=== PATIENT | female | born 1955 | race Caucasian/White ===

== ENCOUNTER → 2021-07-17 11:34 | Outpatient (CLI) | payer OTHER, SELFPAY ==
--- NOTE | ~2021-07-17 | XR_ITS ---
EXAMINATION: XR knee LT min 4V, XR knee RT min 4V DATE: 07/17/2021 11:59 INDICATION: Bilateral knee pain TECHNIQUE: 1. Weight bearing anteroposterior and Fermin, sunrise, and flexed lateral views of the right knee were obtained. 2. Weight bearing anteroposterior and Fermin, sunrise, and flexed lateral views of the left knee w ere obtained. COMPARISON: None. FINDINGS: Alignment is normal at both knees. No fracture. Tricompartmental osteoarthritis at the bilateral kne es with severe joint space narrowing in the medial compartment of the right knee and moderate to mario re at the medial compartment of the left knee. Normal joint spaces but with small marginal osteophyte s at the lateral and patellofemoral compartment of both knees. No joint effusion/layering lipohemarth rosis. Soft tissues are unremarkable. IMPRESSION: 1. 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 Reviewed, dictated and finalized at location B. IMPRESSION: 1. 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
== END ==
PROVIDERS: PCP Physician Assistant; Visit Provider Physician Assistant
DX: M17.0 Bilateral primary osteoarthritis of knee (principal)
CPT/HCPCS: 73564

== ENCOUNTER 2022-02-10 07:51 | Emergency (ER) | payer OTHER, SELFPAY ==
[2022-02-10] VITALS (17 sets, daily range): BP systolic 91–147; BP diastolic 55–132; PULSE 65; RESP 20; TEMP 37; O2SAT 70–100
--- NOTE | ~2022-02-10 | XR_ITS ---
EXAMINATION: XR shoulder RT min 2V INDICATION: Right arm injury and deformity after fall, initial encounter TECHNIQUE: Three views of the right shoulder are submitted. COMPARISON: None FINDINGS: There is an acute, traumatic, closed, comminuted fracture involving the neck and head of th e proximal humerus. The fracture fragment containing the humeral shaft is mildly proximally migrated and medially displaced approximately 1.5 cm. There is mild osteoarthritis of the acromioclavicular roosevelt int. Soft tissues are unremarkable. IMPRESSION: 1. Displaced and overriding comminuted fracture involving the right humeral head and neck. Reviewed, dictated and finalized at location A. IFIED GENETIC COUNSELOR IMPRESSION: 1. Displaced and overriding comminuted fracture involving the right humeral hea d and neck.
--- NOTE | 2022-02-10 08:16 | ED.GENADULT ---
HPI - General Adult General Chief complaint: Fall Stated complaint: GLF c R shoulder deformity Time Seen by Provider: 02/10/22 07:51 History of Present Illness HPI narrative: 66-year-old female present to the emergency department for evaluation of right shoulder pain. Patient states that she had a mechanical fall after tripping over something in the dark. Patient did injure her right shoulder. Patient arrived to the emergency department with a shoulder splint in place. Patient complains pain at the proximal right shoulder. Patient denies any pain of the elbow or hand. Patient denies striking head denies loss of consciousness. Related Data Home Medications Medication Instructions Recorded Confirmed coenzyme Q10 10 mg capsule (Co 10 mg PO ONCE 07/20/21 Q-10) Allergies Allergy/AdvReac Type Severity Reaction Status Date / Time Contrast Media Allergy Unknown Swelling Uncoded 02/10/22 08:01 Review of Systems Review of Systems: CONSTITUTIONAL: Denies fever, chills, or sweats. EYES: Denies visual changes, redness, or discharge. ENT: Denies rhinorrhea, congestion, sore throat, or otalgia. CARDIOVASCULAR: Denies chest pain, palpitations, or edema. RESPIRATORY: Denies cough or dyspnea. GASTROINTESTINAL: Denies abdominal pain, nausea, vomiting, or diarrhea. GENITOURINARY: Denies dysuria or hematuria. SKIN: Denies rash or itching. MUSCULOSKELETAL: See HPI NEUROLOGIC: Denies headache, numbness, or weakness. [facility] Past Medical History Medical History (Updated 02/10/22 @ 09:06 by Brendan Gonzalez MD) Arthritis of knee HLD (hyperlipidemia) HTN (hypertension) Impacted cerumen of both ears Surgical History Surgical History History of cholecystectomy Family History Family History Father Hypertension Malignant neoplasm of prostate Mother Hypertension Sibling Family history of malignant neoplasm of urinary bladder Hypertension Social History Social History (Updated 07/20/21 @ 11:36 by Susy Lackey CMA) Smoking status: Never smoker Second hand tobacco smoke exposure: No Alcohol intake: current Drinks per week: 6 Substance use: never Substance use type: does not use Additional occupation/education comments: HM Gender identity (if verbalized by the patient): Female Sexual Orientation (if Verbalized by the Patient): Straight or Heterosexual Exam Narrative: APPEARANCE: Well appearing, no pain, no distress, well-nourished. HEAD: normocephalic, atraumatic. EYES: PERRLA/EOMI, conjunctivae clear. NOSE: Normal no drainage EARS:TMS clear with good light reflex. THROAT: Pharynx clear, no exudate. NECK: Supple. No adenopathy, no masses. RESPIRATORY: Airway patent, respirations nonlabored. Clear to auscultation bilaterally, no rales, rhonchi, wheezing. CARDIOVASCULAR: Regular rate and rhythm without murmurs rubs or gallops. ABDOMINAL: Soft, nontender, nondistended, normal bowel sounds MUSCULOSKELETAL: Moves all extremities. Pain in the right shoulder, limited range of motion. No significant deformity NEURO: Alert. Cranial nerves II through XII intact. Grossly intact SKIN: Warm, dry. Normal Color Course Course Emergency Course: Dr. Roa recommended that the patient be transferred to [facility]. Case was discussed and patient was accepted for transfer. Patient was placed in a shoulder immobilizer. Transfer services discussed the case with the orthopedic surgeon at [facility] and he recommended transfer, for services also spoke to the ED physician and patient was accepted for transfer. Patient and family were updated on the diagnosis and plan for transfer. All questions and concerns were addressed. Vital Signs Vital signs: Vital Signs Temperature 98.6 F 02/10/22 07:55 Pulse Rate 65 02/10/22 07:55 Respiratory Rate 20 02/10/22 07:55 Blood Pressure 134/95 H
[2022-02-10] MEDS: ONDANSETRON INJ 4 MG/2 ML VIAL IV PUSH (08:22)
[2022-02-10] MEDS: HYDROmorphone HCL INJ (*CRX) 1 MG/ML SYR IV PUSH ×3 (08:23→11:27)
[2022-02-10 08:51] LABS: Basophils Absolute Auto 0.1 K/mm3 (0.0-0.1); Basophils Percent Auto 1.1 % (0.2-1.2); Eosinophils Absolute Auto 0.2 K/mm3 (0-0.3); Eosinophils Percent Auto 3.5 % (0-4.4); Hematocrit 47.4 % (37.0-47.0); Hemoglobin 16.2 g/dL (12.0-15.0); Immature Granulocyte Absolute 0.01 K/mm3 (0.00-0.031); Immature Granulocyte Percent A 0.2 % (0-0.5); Lymphocytes Absolute Auto 2.23 K/mm3 (0.9-3.2); Lymphocytes Percent Auto 35.7 % (18.3-44.2); Mean Corpuscular HGB Conc 34.2 g/dl (32-36); Mean Corpuscular Hemoglobin 33.1 pg (26-34); Mean Corpuscular Volume 96.7 fl (80-100); Mean Platelet Volume 10.5 fl (7.4-10.4); Monocytes Absolute Auto 0.6 K/mm3 (0.1-0.6); Monocytes Percent Auto 9.6 % (2.6-8.5); Neutrophils Absolute Auto 3.1 K/mm3 (1.3-6.7); Neutrophils Percent Auto 49.9 % (45.5-73.1); Platelet Count Result 193 k/mm3 (150-375); White Blood Count 6.3 K/mm3 (4.5-10.0)
[2022-02-10 09:03] LABS: INR 1.1; Prothrombin Time 13.5 Seconds (11.1-14.7)
[2022-02-10 09:04] LABS: Partial Thromboplastin Time 23.7 SECONDS (22.3-36.8)
[2022-02-10 09:05] LABS: Anion Gap 9 mmol/L (8-16); Blood Urea Nitrogen 8 mg/dL (7-17); Calcium 8.9 mg/dL (8.4-10.2); Carbon Dioxide 25 mmol/L (22-30); Chloride 101 mmol/L (98-107); Estimated CRCL calculation 96 ml/min; Estimated Glomerular Filt Rate > 60; Glucose 111 mg/dL (65-110); Potassium 4.3 mmol/L (3.4-5.0); Sodium 135 mmol/L (137-145)
[2022-02-10] MEDS: HYDROmorphone HCL INJ (*CRX) 1 MG/ML SYR 0.5 MG IV PUSH (09:09)
[2022-02-10] MEDS: CYCLOBENZAPRINE HCL 10 MG TABLET PO (10:11)
[2022-02-10 10:48] LABS: Influenza A QL RT-PCR Negative (Negative); Influenza B QL RT-PCR Negative (Negative); SARS-CoV-2 RNA PCR Negative
== END 2022-02-10 11:32 | disposition short-term general hospital (02) ==
PROVIDERS: Emergency Provider Emergency Medicine; PCP Family Medicine
DX: S42.291A Other displaced fracture of upper end of right humerus, initial encounter for closed fracture (principal); E78.5 Hyperlipidemia, unspecified; I10 Essential (primary) hypertension; Z20.822 Contact with and (suspected) exposure to COVID-19; W01.0XXA Fall on same level from slipping, tripping and stumbling without subsequent striking against object, initial encounter
CPT/HCPCS: 36415; 73030; 80048; 85025; 85610; 85730; 87636; 96374; 96375; 96376; 99285; A9270; J1170; J2405

== ENCOUNTER 2024-05-08 16:19 | Emergency (ER) | payer OTHER, SELFPAY ==
[2024-05-08 16:31] VITALS: BP 177/81; PULSE 94; RESP 16; TEMP 37.9; O2SAT 98
--- NOTE | 2024-05-08 16:34 | ED_ITS ---
HPI - Abdominal Pain General Stated Complaint: left side pain, 102 temp Source: patient and RN notes reviewed Mode of arrival: ambulatory Limitations: no limitations History of Present Illness HPI narrative: 68 y/o female presented for c/o left lower abdominal pain, fever, and diarrhea. Onset morning. Pain worse with any movement especially bending over. Reports temp at home 100.2. Has had 3 diarrhea stools today. Reports normal appetite. Endorses hx diverticulitis and says this feels similar. Took ibuprofen. Denies nausea, vomiting, hematochezia, melena or lethargy. 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 Related Data Allergies Allergy/AdvReac Type Severity Reaction Status Date / Time Contrast Media Allergy Unknown Swelling Uncoded 11/13/23 11:47 Review of Systems Review of Systems: CONSTITUTIONAL: Denies body aches, reports fever ENT: Denies rhinorrhea, congestion CARDIOVASCULAR: Denies chest pain, palpitations, or edema. RESPIRATORY: Denies cough or dyspnea. GASTROINTESTINAL: Endorses abdominal pain, diarrhea. Denies nausea, vomiting, hematochezia, melena, hematemesis GENITOURINARY: Denies hematuria, or CVA tenderness. SKIN: Denies rash, itching, or wounds. MUSCULOSKELETAL: Denies back pain, joint pain, or myalgia. NEUROLOGIC: Denies headache, numbness, tingling, or weakness. All systems reviewed & are unremarkable except as noted in HPI and below PMFSH Past Medical History Medical History Arthritis of knee Fracture of head of right humerus HLD (hyperlipidemia) HTN (hypertension) Impacted cerumen of both ears Surgical History Surgical History History of cholecystectomy Family History Family History Father Hypertension Malignant neoplasm of prostate Mother Hypertension Sibling Family history of malignant neoplasm of urinary bladder Hypertension Social History Social History Smoking status: Never smoker Second hand tobacco smoke exposure: No Alcohol intake: current Drinks per week: 6 Substance use: never Substance use type: does not use Lack of Transportation: No Lack of Food: Never True Current Housing: I Have Housing Concerned About Future Housing: No Difficulty Paying Gas/Electric Bills: No Difficulty Paying for Meds: No Currently Unemployed: No Education: High School Diploma/GED Difficulty w/ Childcare or Family Care: No Living arrangements: with family Occupation/Education: other Additional occupation/education comments: HM Gender identity (if verbalized by the patient): Female Sexual Orientation (if Verbalized by the Patient): Straight or Heterosexual Comments At time of signature, I have reviewed and agree with nursing past medical, surgical, social and family history unless otherwise noted. Please see nursing chart for further information. There is no relevant family history pertinent to the presenting complaint Exam Narrative: GENERAL: appers in pain; in no acute distress. EYES: EOMI. Conjunctivae normal. ENT: Mucous membranes pink and moist. CHEST: No respiratory distress. Clear to auscultation. HEART: Regular rate and rhythm. No murmur appreciated. Normal peripheral pulses. ABDOMEN: abd soft, nondistended, normal active bowel sounds. Tender abdomen LLQ: guarding noted. No rebound tenderness, asymmetry or rigidity. SKIN: Warm, dry, no rash. Capillary refill normal. Normal skin turgor. NEURO: No focal deficits. Alert and oriented x3. Course Course Emergency Course: Patient is aware of diagnosis, understands and agrees to treatment plan. Anticipatory guidance given. Patient agrees to follow-up as directed and is aware of reasons to seek care at the emergency department. Portions of this record may have been created with voice recognition software Level of Care: Express Care Visit Vital Signs Vital signs: Vital Signs Temperature 100.2 F H 05/08/24 16:31 Pulse Rate 94 05/08/24 16:31 Respiratory Rate 16 05/08/24 16:31 Blood Pressure 177/81 H 05/08/24 16:31 Pulse Oximetry 98 05/08/24 16:31 Oxygen Delivery Room Air 05/08/24 16:31 Temperature 100.2 F H 05/08/24 16:31 Pulse Rate 94 05/08/24 16:31 Respiratory Rate 16 05/08/24 16:31 Blood Pressure 177/81 H 05/08/24 16:31 Pulse Oximetry 98 05/08/24 16:31 Oxygen Delivery Room Air 05/08/24 16:31 Transfer Transfered to: [place] Transportation: Other (Private vehicle) Transfer rationale: Pt is agreeable to transfer. [facility] transfer [facility] via private vehicle; declined ambulance. Risks of transportation reviewed with pt including injury, worsening of condition and . v/u. Has been will be driving pt; Report called to hospital, spoke with Lisa De Leon PA-C accepting physician. Pt is in stable condition at time of transfer. Advised to remain NPO and go directly to the hospital. MDM - Abdominal Pain MDM Narrative Medical decision making narrative: Patient with left lower abdominal pain, fever, and diarrhea. Advised ER transfer for further evaluation. Differential Diagnosis Differential diagnosis: Likely abdominal pain, acute appendicitis, calculus of kidney, constipation, diverticulitis, gastroenteritis, pancreatitis, small bowel obstruction and other Discharge Plan Discharge Clinical Impression: Abdominal pain, acute, left lower quadrant Patient Disposition: Acute Care Hospital Condition: Stable Patient Language: Urdu Prescriptions: No Action omeprazole 20 mg capsule,delayed release(DR/EC) 20 mg PO DAILY Qty: 90 2RF Rx Instructions: take 1 capsule by oral route every day 30 minutes to 1 hour before a meal atenolol 50 mg tablet See Rx Instructions .ROUTE .COMPLEX Qty: 90 1RF Dose Instruction: Take 1 tablet by mouth once daily Rx Instructions: Take 1 tablet by mouth once daily diltiazem HCl 360 mg capsule,extended release 24 hr 360 mg PO DAILY Qty: 90 3RF Rx Instructions: TAKE 1 CAPSULE BY MOUTH ONCE DAILY Follow-up/Referrals: Terese Palomares MD [Primary Care Provider] - Time of Disposition: 16:48
== END 2024-05-08 16:45 | disposition short-term general hospital (02) ==
PROVIDERS: Emergency Provider Nurse Practitioner Family; PCP Family Medicine
DX: R10.32 Left lower quadrant pain (principal); I10 Essential (primary) hypertension; E78.5 Hyperlipidemia, unspecified
CPT/HCPCS: 99212; G0463

== ENCOUNTER 2024-05-08 17:04 | Emergency (ER) | payer OTHER, SELFPAY ==
--- NOTE | ~2024-05-08 | CT_ITS ---
EXAMINATION: CT abdomen pelvis wo con DATE: 05/08/2024 20:44 INDICATION: LLQ pain, hx divericulitis TECHNIQUE: Computed tomography (CT) of the abdomen and pelvis was performed without intravenous contr ast. Automated exposure control and iterative reconstruction technique were employed. The dose-length product was 983.18 mGy-cm. COMPARISON: None. FINDINGS: Lower thorax: Coronary artery calcification. Small hiatal hernia. Liver: Nodular liver border. Biliary/Gallbladder: Gallbladder is absent. No bile duct dilation. Pancreas: Thin-walled mildly lobulated cystic density pancreatic head lesion, measuring 4.8 cm, with minimal wall calcification. The remainder the pancreas is normal. Spleen: Normal. Adrenals:No mass. Kidneys: No suspicious mass, obstructing stone, or hydronephrosis. GI tract: No small or large bowel dilation. Normal appendix. Moderate diverticulosis. Inflamed divert iculum in the left lower quadrant, in the proximal sigmoid, with surrounding inflammatory changes albertina t extend to the nearby left adnexal structures. Mesentery/Peritoneum: No ascites, mass, or free air. Retroperitoneum: No mass. Atherosclerotic calcifications of intra-abdominal arterial vessels. Pelvis: Normal urinary bladder and uterus. 3.1 cm left adnexal/ovarian cyst. Mild inflammatory change involving the right ovary and adnexal structures likely reactive to the adjacent diverticulitis. Nor mal right ovary. Soft Tissues: Soft tissues and body wall unremarkable. Bones: No acute osseous finding. IMPRESSION: Cirrhosis. Slight interval enlargement of the pancreatic head cyst now measuring 4.7 cm, with minimal change ove r nearly 6 years. Likely pseudocyst or benign epithelial cyst. Uncomplicated proximal sigmoid diverticulitis. 3.1 cm simple appearing left adnexal cyst, consider nonemergent outpatient pelvic ultrasound for furt her evaluation. Reviewed, dictated and finalized at location K. IMPRESSION: Cirrhosis. Slight interval enlargement of the pancreatic head cyst now measuring 4.7 cm, w ith minimal change coordinator nearly 6 years. Likely pseudocyst or benign epithelial cyst. Uncomplicated proximal sigmoid diverticulitis. 3.1 cm simple appearing left adnexal cyst, consider nonemergent outpatient pelv ic ultrasound for further evaluation.
--- OUTSIDE RECORDS SUMMARY | 2024-05-08 17:06 | XMS_ITS | Referral Summary ---
Author Organization [facility] Address [address] [place] [address] Care Team Providers Care Film Examiner Name Role Phone Unavailable Primary Care Provider Unavailabl e Source Comments [facility],non-owned Affiliates and Associated Physician Practices is amultiple site organization consisting of ambulatory clinics and hospital sitesin [place], [place], [place] and [place]. This disclosure is being madepursuant to the Care Everywhere program and may not contain all information available regarding this patient. Last updated 17.[facility] Allergies Active Allergy Reactions Criticality Noted Date Comments Contrast-Gadolinium Agents For Mri Anaphylaxis High 02/10/2022 Oxycodone-Acetaminophen Itching 02/19/2022 Medications * Be aware that medications may not be up to date on this document. Alwaysverify current medications with the patient. Medication Sig Dispensed Refills Start Date End Date Status atenolol (Tenormin) 50 MG tablet Take 1 (one) tablet by mouth once daily 01/22/2022 Active dilTIAZem ER (Tiazac) 360 MG capsule Take 1 (one) capsule by mouth once daily 01/22/2022 Active omeprazole (PriLOSEC) 20 MG capsule Take 1 (one) capsule by mouth daily before breakfast 01/14/2022 Active rosuvastatin (Crestor) 10 MG tablet Take 1 (one) tablet by mouth once daily 07/20/2021 Active cyclobenzaprine (Flexeril) 5 MG tablet Take 1 (one) tablet to 2 (two) tablets by mouth 3 times daily as needed (Muscle spasms) 45 tablet 02/19/2022 Active Additional Information Patient not taking.Reported on 04/02/2022 traMADol (Ultram) 50 MG tabletIndications:C losed fracture of proximal end of right humerus, unspecified fracture morphology, initial encounter Take 1 (one) tablet by mouth every 6 hours as needed for Pain FOR PAIN 50 tablet 02/22/2022 Active Additional Information Patient not taking.Reported on 04/02/2022 Active Problems Problem Noted Date Diagnosed Date 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 (FLUZONE HIGH-DOSE QUADRIVALENT; 65Y+), 0.7 ML (HD-IIV4) 01/24/2022 INFLUENZA VACCINE, QUADR. (F LUZONE; FLULAVAL; FLUARIX; AFLURIA QUADRIVALENT; 6MO+), 0.5 ML (IIV4) 12/30/2019,02/03/2019,12/18/2017 MODERNA SARS-COV-2 COVID-19 VACCINE 0.25ML 02/11 TD (ADULT), 5 LF TETANUS TOX OID, ADSORBED, PF 09/26/2008,02/24/1997 TDAP, HISTORIC VACCINE 11/29/2013,11/22/2013 Social History Tobacco Use Types Packs/Day Years Used Date Smoking Tobacco: Never Smokeless Tobacco: Never Tobacco Cessation:Counseling Given: Not Answered Alcohol Use Standard Drinks/Week Comments Yes 12 (1 standard drink = 0.6 oz pu re alcohol) AUDIT-C Answer Date Recorded Q1: How often do you have a drink containing alcohol? 4 or more times a week 02/10/2022 Q2: How many drinks containi ng alcohol do you have on a typical day when you are drinking? 10 or more Q3: How often do you have si x or more drinks on one occasion? Less than monthly 02/10/2022 Sex and Gender Information Value Date Recorded Sex Assigned at Not on file Gender Identity Not on file Sexual Orientation Not on file Last Filed Vital Signs Vital Sign Reading Time Taken Comments Blood Pressure 131/56 02/10/2022 7:30 PM INSIDE SALES ASSISTANT Pulse 63 02/10/2022 7:30 PM INSIDE SALES ASSISTANT Temperature 36.2 C (97.1 F) 02/10/2022 12:11 PM INSIDE SALES ASSISTANT Respiratory Rate 12 02/10/2022 7:30 PM INSIDE SALES ASSISTANT Oxygen Saturation 95% 02/10/2022 7:30 PM INSIDE SALES ASSISTANT Inhaled Oxygen Concentration - - Weight 99.8 kg (220 lb) 07/16/2022 11:20 AM CDT Height 167.6 cm (5' 6 ) 07/16/2022 11:20 AM CDT Body Mass Index 35.51 07/16/2022 11:20 AM CDT Plan of Treatment Not on file Procedures Procedure Name Priority Date/Time Associated Diagnosis Comments COMPREHENSIVE METABOLIC PANEL STAT 02/10/2022 1:33 PM INSIDE SALES ASSISTANT from Last 3 Months or Most Recently Relevant to Health Maintenance Results * (ABNORMAL) COMPREHENSIVE METABOLIC PANEL (02/10/2022 1:33 PM INSIDE SALES ASSISTANT) BUN 10 7 - 26 mg/dL 02/10/2022 2:08 PM [facility] Creatinine 0.85 0.56 - 0.96 mg/dL 02/10/2022 2:08 PM [facility] Sodium 138 136 - 145 mmol/L 02/10/2022 2:08 PM [facility] Potassium 4.9(H) 3.5 - 4.5 mmol/L 02/10/2022 2:08 PM [facility] Chloride 104 98 - 107 mmol/L 02/10/2022 2:08 PM [facility] CO2 25 22 - 29 mmol/L 02/10/2022 2:08 PM [facility] Glucose 122(H) 70 - 115 mg/dL 02/10/2022 2:08 PM [facility] Calcium 8.8 8.4 - 10.2 mg/dL 02/10/2022 2:08 PM [facility] Protein Total 7.5 6.0 - 8.3 g/dL 02/10/2022 2:08 PM [facility] Albumin 3.7 3.4 - 5.0 g/dL 02/10/2022 2:08 PM [facility] Bilirubin Total 1.7(H) 0.2 - 1.2 mg/dL 02/10/2022 2:08 PM [facility] Alkaline Phosphatase 79 40 - 150 U/L 02/10/2022 2:08 PM [facility] ALT 72(H) 5 - 55 U/L 02/10/2022 2:08 PM [facility] AST 125(H) 5 - 34 U/L 02/10/2022 2:08 PM [facility] Anion Gap 14 8 - 18 02/10/2022 2:08 PM [facility] BUN/Creatinine Ratio 12 7 - 23 02/10/2022 2:08 PM [facility] Osmolality Calculated 286 270 - 300 mOsm/kg 02/10/2022 2:08 PM [facility] Albumin/Globulin Ratio 1.0(L) 1.1 - 2.3 02/10/2022 2:08 PM [facility] eGFR by CKD-EPI 76(L) >=90 mL/min/1.7 3 m2 02/10/2022 2:08 PM [facility] Blood BLOOD SPECIMEN / Unknown Venipuncture / Unknown 02/10/2022 1:33 PM INSIDE SALES ASSISTANT 02/10/2022 1:39 PM INSIDE SALES ASSISTANT Thad Tejeda DO LAB - CHEMISTRY OR DERABLES [facility] [address] [place] [address], [facility] [phone] from Last 3 Months or Most Recently Relevant to Health Maintenance
--- OUTSIDE RECORDS SUMMARY | 2024-05-08 17:06 | XMS_ITS | Patient Health Summary ---
Author Organization [facility] Address [address] [place] [address] Care Team Providers Care Manager Laboratory Name Role Phone Unavailable Primary Care Provider Unavailabl e Note from [facility],non-owned Affiliates and Associated Physician Practices is amultiple site organization consisting of ambulatory clinics and hospital sitesin [place], [place], [place] and [place]. This disclosure is being madepursuant to the Care Everywhere program and may not contain all information available regarding this patient. Last updated 17.[facility] Allergies * Contrast-Gadolinium Agents For Mri(Anaphylaxis) -High Criticality * Oxycodone-Acetaminophen(Itching) Medications * Be aware that medications may not be up to date on this document. Alwaysverify current medications with the patient. * atenolol (Tenormin) 50 MG tablet(Started 01/22/2022) Take 1 (one) tablet by mouth once daily * dilTIAZem ER (Tiazac) 360 MG capsule(Started 01/22/2022) Take 1 (one) capsule by mouth once daily * omeprazole (PriLOSEC) 20 MG capsule(Started 01/14/2022) Take 1 (one) capsule by mouth daily before breakfast * rosuvastatin (Crestor) 10 MG tablet(Started 07/20/2021) Take 1 (one) tablet by mouth once daily * cyclobenzaprine (Flexeril) 5 MG tablet(Started 02/19/2022) Take 1 (one) tablet to 2 (two) tablets by mouth 3 times daily as needed (Muscle spasms) * traMADol (Ultram) 50 MG tablet(Started 02/22/2022) Take 1 (one) tablet by mouth every 6 hours as needed for Pain FOR PAIN Active Problems Problem Noted Date Diagnosed Date 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 (FLUZONE HIGH-DOSE QUADRIVALENT; 65Y+), 0.7 ML (HD-IIV4)(Given 01/24/2022) * INFLUENZA VACCINE, QUADR. (FLUZONE; FLULAVAL; FLUARIX; AFLURIA QUADRIVALENT; 6MO+), 0.5 ML (IIV4)(Given 12/30/2019, 02/03/2019, 12/18/2017) * MODERNA SARS-COV-2 COVID-19 VACCINE 0.25ML(Given 02/11/2021) * TD (ADULT), 5 LF TETANUS TOXOID, ADSORBED, PF(Given 09/26/2008, 02/24/1997) * TDAP, HISTORIC VACCINE(Given 11/29/2013, 11/22/2013) Social History Tobacco Use Types Packs/Day Years [...] Comments Blood Pressure 131/56 02/10/2022 7:30 PM [facility] Pulse 63 02/10/2022 7:30 PM [facility] Temperature 36.2 C (97.1 F) 02/10/2022 12:11 PM [facility] Respiratory Rate 12 02/10/2022 7:30 PM [facility] Oxygen Saturation 95% 02/10/2022 7:30 PM [facility] Inhaled Oxygen Concentration - - Weight 99.8 kg (220 lb) 07/16/2022 11:20 AM CDT Height 167.6 cm (5' 6 ) 07/16/2022 11:20 AM CDT Body Mass Index 35.51 07/16/2022 11:20 AM CDT Procedures * XR SHOULDER RIGHT 2VW OR MORE(Performed 08/28/2022) Performed for Closed fracture of proximal end of right humerus with routine healing, unspecified fracture morphology, subsequent encounter * XR SHOULDER RIGHT 2VW OR MORE(Performed 07/16/2022) Performed for Closed fracture of proximal end of right humerus with routine healing, unspecified fracture morphology, subsequent encounter * XR SHOULDER RIGHT 2VW OR MORE(Performed 05/14/2022) Performed for Acute pain of right shoulder * XR SHOULDER RIGHT 2VW OR MORE(Performed 04/02/2022) Performed for Acute pain of right shoulder * XR SHOULDER RIGHT 2VW OR MORE(Performed 03/05/2022) Performed for Closed fracture of proximal end of right humerus, unspecified fracture morphology, initial encounter * XR SHOULDER RIGHT 2VW OR MORE(Performed 02/19/2022) Performed for Closed fracture of proximal end of right humerus, unspecified fracture morphology, initial encounter * CT SHOULDER RIGHT WO CONTRAST(Performed 02/10/2022) Performed for Other closed displaced fracture of proximal end of right humerus, initial encounter * XR SHOULDER RIGHT 2VW OR MORE(Performed 02/10/2022) Performed for Other closed displaced fracture of proximal end of right humerus, initial encounter * COMPREHENSIVE METABOLIC PANEL(Performed 02/10/2022) * CBC W AUTO DIFFERENTIAL(Performed 02/10/2022) * XR ELBOW RIGHT 3VW OR MORE(Performed 02/10/2022) Performed for Other closed displaced fracture of proximal end of right humerus, initial encounter * XR SHOULDER RIGHT 2VW OR MORE(Performed 02/10/2022) Performed for Other closed displaced fracture of proximal end of right humerus, initial encounter * XR HUMERUS RIGHT 2VW OR MORE(Performed 02/10/2022) Performed for Other closed displaced fracture of proximal end of right humerus, initial encounter Results * XR SHOULDER RIGHT 2VW OR MORE (08/28/2022 9:54 AM CDT) Only the most recent of8 resultswithin the time period is included. Anatomical Region Laterality Modality Upper Extremity Radiographic Michelle ging 08/28/2022 9:59 AM CDT Impressions 08/28/2022 10:00 AM CDT IMPRESSION: Healing humeral neck fracture, unchanged in alignment. > Interpreting Provider: Ken Anderson MD on 08/28/2022 10:00 AM Narrative 08/28/2022 10:00 AM CDT PROCEDURE: XR SHOULDER RIGHT 2VW OR MORE DATE/TIME OF EXAM: 08/28/2022 9:54 AM CLINICAL INFORMATION: None relevant/not provided if blank. Indication: S42.201D: Closed fracture of proximal end of right humerus with routine healing, unspecified fracture morphology, subsequent encounter Additional History: COMPARISON: 07/16/2022. FINDINGS: There is a mildly to moderately displaced and impacted humeral neck fracture which is unchanged in alignment and healing. There is mild degenerative change at the acromioclavicular joint. Procedure Note Ken Anderson MD - 08/28/2022 PROCEDURE: XR SHOULDER RIGHT 2VW OR MORE DATE/TIME OF EXAM: 08/28/2022 9:54 AM CLINICAL INFORMATION: None relevant/not provided if blank. Indication: S42.201D: Closed fracture of proximal end of right humeruswith routine healing, unspecified fracture morphology, subsequent encounter Additional History: COMPARISON: 07/16/2022. FINDINGS: There is a mildly to moderately displaced and impacted humeral neck fracture which is unchanged in alignment and healing. There is mild degenerative change at the acromioclavicular joint. IMPRESSION: Healing humeral neck fracture, unchanged in alignment. > Interpreting Provider: Ken Anderson MD on 08/28/2022 10:00 AM Francisco Mishra MD DIAGNOSTIC IMAGING O RDERABLES * CT SHOULDER RIGHT WO CONTRAST (02/10/2022 6:39 PM [facility]) Anatomical Region Laterality Modality Upper Extremity Computed Tomogra phy 02/11/2022 11:1 4 AM [facility] Impressions 02/11/2022 11:33 AM [facility] IMPRESSION: 1.Comminuted moderately displaced fracture of the humeral head and neck. > Dictated by Yosi Vilchis DO (Unit Secy) Ken Mora MD have personally reviewed and interpreted this examination/study. > Interpreting Provider: Ken Anderson MD on 02/11/2022 11:33 AM Narrative 02/11/2022 11:33 AM [facility] PROCEDURE: CT SHOULDER RIGHT WO CONTRAST, DATE/TIME OF EXAM: 02/10/2022 6:39 PM, LOCATION [facility] INDICATION: S42.291A: Other closed displaced fracture of proximal end of right humerus, initial encounter ADDITIONAL CLINICAL INFORMATION: Ordering Provider Reason For Exam: eval for dislocation and eval proximal humeral fracture COMPARISON: Right shoulder radiograph dated 02/10/2022. TECHNIQUE: CT of the right shoulder was performed utilizing standard protocol. CT dose reduction technique was used, including Automated Exposure Control. FINDINGS: Bones: There is a comminuted moderately displaced fracture of the humeral head and neck. The fracture involves the greater tuberosity. There is no dislocation. There is no significant arthritis at the acromioclavicular or glenohumeral joints. Soft tissues: There is soft tissue edema around the humeral fracture site. Procedure Note Ken Anderson MD - 02/11/2022 PROCEDURE: CT SHOULDER RIGHT WO CONTRAST, DATE/TIME OF EXAM:02/10/2022 6:39 PM, LOCATION [facility] INDICATION: S42.291A: Other closed displaced fracture of proximal end of righthumerus, initial encounter ADDITIONAL CLINICAL INFORMATION: Ordering Provider Reason For Exam: eval for dislocation and evalproximal humeral fracture COMPARISON: Right shoulder radiograph dated 02/10/2022. TECHNIQUE: CT of the right shoulder was performed utilizing standard protocol. CT dose reduction technique was used, including Automated ExposureControl. FINDINGS: Bones: There is a comminuted moderately displaced fracture of thehumeral head and neck. The fracture involves the greater tuberosity. There is no dislocation. There is no significant arthritis at the acromioclavicularor glenohumeral joints. Soft tissues: There is soft tissue edema around the humeral fracture site. IMPRESSION: 1.Comminuted moderately displaced fracture of the humeral head and neck. > Dictated by Yosi Vilchis DO (Unit Sec[employer]) Ken Mora MD have personally reviewed and interpreted this examination/study. > Interpreting Provider: Ken Anderson MD on 02/11/2022 11:33 AM Thad Tejeda DO CT ORDERABLES * (ABNORMAL) CBC W AUTO DIFFERENTIAL (02/10/2022 1:33 PM [facility]) WBC 8.0 3.5 - 10.5 10 3/uL 02/10/2022 1:43 PM [facility] RBC 4.29 3.80 - 5.20 10 6/uL 02/10/2022 1:43 PM [facility] Hemoglobin 13.9 12.0 - 15.6 g/dL 02/10/2022 1:43 PM [facility] Hematocrit 40.9 35.0 - 45.0 % 02/10/2022 1:43 PM [facility] MCV 95.3 80.7 - 98.3 fL 02/10/2022 1:43 PM [facility] MCH 32.4 26.7 - 34.0 pg 02/10/2022 1:43 PM [facility] MCHC 34.0 30.8 - 35.9 g/dL 02/10/2022 1:43 PM [facility] RDW-SD 45.9 36.0 - 50.0 fL 02/10/2022 1:43 PM [facility] RDW-CV 13.1 11.2 - 14.8 % 02/10/2022 1:43 PM [facility] Platelet Count 165 150 - 400 10 3/uL 02/10/2022 1:43 PM [facility] MPV 10.3 9.4 - 12.9 fL 02/10/2022 1:43 PM [facility] nRBC Absolute 0.00 0 10 3/uL 02/10/2022 1:43 PM [facility] nRBC Auto 0.0 0 /100 WBC 02/10/2022 1:43 PM [facility] Neutrophils % 80.1(H) 35.0 - 70.0 % 02/10/2022 1:43 PM [facility] Lymphocytes % 11.2(L) 20.0 - 43.0 % 02/10/2022 1:43 PM [facility] Monocytes % 7.8 5.0 - 13.0 % 02/10/2022 1:43 PM [facility] Eosinophils % 0.1 0.0 - 6.0 % 02/10/2022 1:43 PM [facility] Basophil % 0.4 0.0 - 2.0 % 02/10/2022 1:43 PM [facility] Neutrophils Absolute 6.38 1.60 - 7.00 10 3/uL 02/10/2022 1:43 PM [facility] Lymphocyte Absolute 0.89(L) 1.10 - 3.90 10 3/uL 02/10/2022 1:43 PM [facility] Monocytes Absolute 0.62 0.26 - 1.07 10 3/uL 02/10/2022 1:43 PM [facility] Eosinophils Absolute 0.01 0.00 - 0.47 10 3/uL 02/10/2022 1:43 PM [facility] Basophils Absolute 0.03 0.00 - 0.08 10 3/uL 02/10/2022 1:43 PM [facility] Immature Granulocytes % 0.4 0.0 - 1.0 % 02/10/2022 1:43 PM [facility] Immature Granulocytes Absolute 0.03 02/10/2022 1:43 PM [facility] Blood BLOOD SPECIMEN / Unknown Venipuncture / Unknown 02/10/2022 1:33 PM [facility] 02/10/2022 1:39 PM [facility] Thad Tejeda DO LAB - HEMATOLOGY O RDERABLES [facility] [address] [place] [address], [facility] [phone] * (ABNORMAL) COMPREHENSIVE METABOLIC PANEL (02/10/2022 1:33 PM [facility]) BUN 10 7 - 26 mg/dL 02/10/2022 2:08 PM [facility] Creatinine 0.85 0.56 - 0.96 mg/dL 02/10/2022 2:08 PM [facility] Sodium 138 136 - 145 mmol/L 02/10/2022 2:08 PM [facility] Potassium 4.9(H) 3.5 - 4.5 mmol/L 02/10/2022 2:08 PM [facility] Chloride 104 98 - 107 mmol/L 02/10/2022 2:08 PM [facility] CO2 25 22 - 29 mmol/L 02/10/2022 2:08 PM [facility] Glucose 122(H) 70 - 115 mg/dL 02/10/2022 2:08 PM [facility] Calcium 8.8 8.4 - 10.2 mg/dL 02/10/2022 2:08 PM [facility] Protein Total 7.5 6.0 - 8.3 g/dL 02/10/2022 2:08 PM [facility] Albumin 3.7 3.4 - 5.0 g/dL 02/10/2022 2:08 PM [facility] Bilirubin Total 1.7(H) 0.2 - 1.2 mg/dL 02/10/2022 2:08 PM [facility] Alkaline Phosphatase 79 40 - 150 U/L 02/10/2022 2:08 PM [facility] ALT 72(H) 5 - 55 U/L 02/10/2022 2:08 PM [facility] AST 125(H) 5 - 34 U/L 02/10/2022 2:08 PM [facility] Anion Gap 14 8 - 18 02/10/2022 2:08 PM [facility] BUN/Creatinine Ratio 12 7 - 23 02/10/2022 2:08 PM [facility] Osmolality Calculated 286 270 - 300 mOsm/kg 02/10/2022 2:08 PM [facility] Albumin/Globulin Ratio 1.0(L) 1.1 - 2.3 02/10/2022 2:08 PM [facility] eGFR by CKD-EPI 76(L) >=90 mL/min/1.7 3 m2 02/10/2022 2:08 PM [facility] Blood BLOOD SPECIMEN / Unknown Venipuncture / Unknown 02/10/2022 1:33 PM [facility] 02/10/2022 1:39 PM [facility] Thad Tejeda DO LAB - CHEMISTRY OR DERABLES [facility] [address] [place] [address], [facility] [phone] * XR ELBOW RIGHT 3VW OR MORE (02/10/2022 1:14 PM [facility]) Anatomical Region Laterality Modality Upper Extremity Radiographic Michelle ging 02/10/2022 1:14 PM [facility] Impressions 02/10/2022 1:56 PM [facility] IMPRESSION: 1.Acute, oblique fracture through the surgical neck of the proximal humerus with medial displacement of the distal humeral fragment. 2.The distal humerus and elbow are intact without substantial soft tissue edema or effusion. Report dictated by Shan Saldana MD (financial institution president). IANGELICA MD have personally reviewed and interpreted this examination/study. > Interpreting Provider: ANGELICA DICKSON MD on 02/10/2022 1:56 PM Narrative 02/10/2022 1:56 PM [facility] PROCEDURE: XR SHOULDER RIGHT 2VW OR MORE, XR ELBOW RIGHT 3VW OR MORE, XR HUMERUS RIGHT 2VW OR MORE, DATE/TIME OF EXAM: 02/10/2022 1:14 PM, LOCATION [facility] INDICATION: S42.291A: Other closed displaced fracture of proximal end of right humerus, initial encounter ADDITIONAL CLINICAL INFORMATION: Ordering Provider Reason For Exam: Fracture. (accession [id number]), Fracture (accession [id number]), Fracture (accession [id number]) Technologist Note: Additional: COMPARISON: None. FINDINGS: Right shoulder: There is an acute, oblique fracture through the surgical neck of the proximal humerus with medial displacement of the distal humeral fragment. The acromioclavicular joint is in anatomic alignment.. Bone density and texture are normal. Right humerus: Mildly displaced proximal humeral fracture, better characterized on dedicated shoulder radiographs. The mid and distal humerus appear intact without evidence of acute fracture or dislocation. No elbow joint effusion is noted. Right elbow: The osseous structures are intact and well aligned without acute fracture or dislocation. The joint spaces are preserved. No joint effusion is seen. Bone density and texture are normal. No soft tissue swelling is present. Procedure Note Angelica Dickson MD - 02/10/2022 PROCEDURE: XR SHOULDER RIGHT 2VW OR MORE, XR ELBOW RIGHT 3VW OR MORE,XR HUMERUS RIGHT 2VW OR MORE, DATE/TIME OF EXAM: 02/10/2022 1:14 PM,LOCATION [facility] INDICATION: S42.291A: Other closed displaced fracture of proximal end of righthumerus, initial encounter ADDITIONAL CLINICAL INFORMATION: Ordering Provider Reason For Exam: Fracture. (accession [id number]), Fracture (accession [id number]), Fracture (accession [id number]) Technologist Note: Additional: COMPARISON: None. FINDINGS: Right shoulder: There is an acute, oblique fracture through the surgical neck of the proximal humerus with medial displacement of the distal humeralfragment. The acromioclavicular joint is in anatomic alignment.. Bone density and texture are normal. Right humerus: Mildly displaced proximal humeral fracture, better characterized on dedicated shoulder radiographs. The mid and distal humerus appear intact without evidence of acute fracture or dislocation. No elbow jointeffusion is noted. Right elbow: The osseous structures are intact and well aligned without acutefracture or dislocation. The joint spaces are preserved. No joint effusion isseen. Bone density and texture are normal. No soft tissue swelling is present. IMPRESSION: 1.Acute, oblique fracture through the surgical neck of the proximalhumerus with medial displacement of the distal humeral fragment. 2.The distal humerus and elbow are intact without substantial softtissue edema or effusion. Report dictated by Shan Saldana MD (financial institution president). I, ANGELICA DICKSON MD have personally reviewed and interpreted this examination/study. > Interpreting Provider: ANGELICA DICKSON MD on 02/10/2022 1:56 PM Thad Tejeda DO DIAGNOSTIC IMAGING ORDERABLES * XR HUMERUS RIGHT 2VW OR MORE (02/10/2022 1:13 PM [facility]) Anatomical Region Laterality Modality Upper Extremity Radiographic Michelle ging 02/10/2022 1:14 PM [facility] Impressions 02/10/2022 1:56 PM [facility] IMPRESSION: 1.Acute, oblique fracture through the surgical neck of the proximal humerus with medial displacement of the distal humeral fragment. 2.The distal humerus and elbow are intact without substantial soft tissue edema or effusion. Report dictated by Shan Saldana MD (financial institution president). I, ANGELICA DICKSON MD have personally reviewed and interpreted this examination/study. > Interpreting Provider: ANGELICA DICKSON MD on 02/10/2022 1:56 PM Narrative 02/10/2022 1:56 PM [facility] PROCEDURE: XR SHOULDER RIGHT 2VW OR MORE, XR ELBOW RIGHT 3VW OR MORE, XR HUMERUS RIGHT 2VW OR MORE, DATE/TIME OF EXAM: 02/10/2022 1:14 PM, LOCATION [facility] INDICATION: S42.291A: Other closed displaced fracture of proximal end of right humerus, initial encounter ADDITIONAL CLINICAL INFORMATION: Ordering Provider Reason For Exam: Fracture. (accession [id number]), Fracture (accession [id number]), Fracture (accession [id number]) Technologist Note: Additional: COMPARISON: None. FINDINGS: Right shoulder: There is an acute, oblique fracture through the surgical neck of the proximal humerus with medial displacement of the distal humeral fragment. The acromioclavicular joint is in anatomic alignment.. Bone density and texture are normal. Right humerus: Mildly displaced proximal humeral fracture, better characterized on dedicated shoulder radiographs. The mid and distal humerus appear intact without evidence of acute fracture or dislocation. No elbow joint effusion is noted. Right elbow: The osseous structures are intact and well aligned without acute fracture or dislocation. The joint spaces are preserved. No joint effusion is seen. Bone density and texture are normal. No soft tissue swelling is present. Procedure Note Angelica Dickson MD - 02/10/2022 PROCEDURE: XR SHOULDER RIGHT 2VW OR MORE, XR ELBOW RIGHT 3VW OR MORE,XR HUMERUS RIGHT 2VW OR MORE, DATE/TIME OF EXAM: 02/10/2022 1:14 PM,LOCATION [facility] INDICATION: S42.291A: Other closed displaced fracture of proximal end of righthumerus, initial encounter ADDITIONAL CLINICAL INFORMATION: Ordering Provider Reason For Exam: Fracture. (accession [id number]), Fracture (accession [id number]), Fracture (accession [id number]) Technologist Note: Additional: COMPARISON: None. FINDINGS: Right shoulder: There is an acute, oblique fracture through the surgical neck of the proximal humerus with medial displacement of the distal humeralfragment. The acromioclavicular joint is in anatomic alignment.. Bone density and texture are normal. Right humerus: Mildly displaced proximal humeral fracture, better characterized on dedicated shoulder radiographs. The mid and distal humerus appear intact without evidence of acute fracture or dislocation. No elbow jointeffusion is noted. Right elbow: The osseous structures are intact and well aligned without acutefracture or dislocation. The joint spaces are preserved. No joint effusion isseen. Bone density and texture are normal. No soft tissue swelling is present.
--- OUTSIDE RECORDS SUMMARY | 2024-05-08 17:06 | XMS_ITS | Clinical Summary ---
Author Organization [facility] [employer] Address [address] [place] [address] Care Team Providers Care Livestock Dealer Name Role Phone Unavailable Primary Care Provider Unavailabl e Source Comments [facility] [employer],non-owned Affiliates and Associated Physician Practices is amultiple site organization consisting of ambulatory clinics and hospital sitesin [place], [place], [place] and [place]. This disclosure is being madepursuant to the Care Everywhere program and may not contain all information available regarding this patient. Last updated 17.[facility] [employer] Allergies Active Allergy Reactions Criticality Noted Date [...] Comments Blood Pressure 131/56 02/10/2022 7:30 PM QUALITY REVIEWER Pulse 63 02/10/2022 7:30 PM QUALITY REVIEWER Temperature 36.2 C (97.1 F) 02/10/2022 12:11 PM QUALITY REVIEWER Respiratory Rate 12 02/10/2022 7:30 PM QUALITY REVIEWER Oxygen Saturation 95% 02/10/2022 7:30 PM QUALITY REVIEWER Inhaled Oxygen Concentration - - Weight 99.8 kg (220 lb) 07/16/2022 11:20 AM CDT Height 167.6 cm (5' 6 ) 07/16/2022 11:20 AM CDT Body Mass Index 35.51 07/16/2022 11:20 AM CDT Plan of Treatment Health Maintenance Due Date Last Done Comments BONE DENSITY TESTING 1955 COLOGUARD (AGES 45-75) - COLON CA SCREENING 1956 COLON MONITORING 1956 COLONOSCOPY - COLON CA SCREENING 1956 CT COLONOGRAPHY - COLON CA SCREENING 1956 Colorectal Cancer Screening 1956 FIT - COLON CA SCREENING 1956 FLEX SIG - COLON CA SCREENING 1956 MAMMOGRAM 1956 HEPATITIS C SCREENING 08/29/1974 PNEUMOCOCCAL VACCINE 50+ (1 of 1 - PCV) 2006 ZOSTER VACCINE (1 of 2) 2006 COVID-19 VACCINE (4 - season) 2023 02/11/2021, 06/20/2020, 05/23/2020 INFLUENZA VACCINE (#1) 2023 , 12/30/2019, 02/03/2019, Additional history exists DTAP/TDAP/TD VACCINES (5 - Td or Tdap) 11/30/2023 11/29/2013, 11/22/2013, 09/26/2008, Additional history exists DEPRESSION SCREENING 02/25/2024 SCREENING FOR DIABETES 02/10/2025 02/10/2022 Respiratory Syncytial Virus (RSV) Vaccine Pt: or over 60 yrs (1 - 1-dose 75+ series) 09/03/2031 HEPATITIS B VACCINE Completed 12/23/2003, 07/15/2003, 06/10/2003 HIB VACCINE Aged Out No longer eligi ble based on patient's age to complete this topic HPV VACCINE Aged Out No longer eligi ble based on patient's age to complete this topic MENINGOCOCCAL (Group B) VACCINE SHARED DECISION-MAKING Aged Out No longer eligible based on patient's age to complete this topic MENINGOCOCCAL GROUPS A/C/Y/W VACCINE Aged Out No longer eligible based on patient's age to complete this topic Procedures Procedure Name Priority Date/Time Associated Diagnosis Comments COMPREHENSIVE METABOLIC PANEL STAT 02/10/2022 1:33 PM QUALITY REVIEWER from Last 3 Months or Most Recently Relevant to Health Maintenance Results * (ABNORMAL) COMPREHENSIVE METABOLIC PANEL (02/10/2022 1:33 PM QUALITY REVIEWER) BUN 10 7 - 26 mg/dL 02/10/2022 2:08 PM [facility] Creatinine 0.85 0.56 - 0.96 mg/dL 02/10/2022 2:08 PM [facility] Sodium 138 136 - 145 mmol/L 02/10/2022 2:08 PM [facility] Potassium 4.9(H) 3.5 - 4.5 mmol/L 02/10/2022 2:08 PM [facility] Chloride 104 98 - 107 mmol/L 02/10/2022 2:08 PM [facility] CO2 25 22 - 29 mmol/L 02/10/2022 2:08 PM [facility] Glucose 122(H) 70 - 115 mg/dL 02/10/2022 2:08 PM [facility] Calcium 8.8 8.4 - 10.2 mg/dL 02/10/2022 2:08 PM [facility] Protein Total 7.5 6.0 - 8.3 g/dL 02/10/2022 2:08 PM [facility] Albumin 3.7 3.4 - 5.0 g/dL 02/10/2022 2:08 PM [facility] Bilirubin Total 1.7(H) 0.2 - 1.2 mg/dL 02/10/2022 2:08 PM [facility] Alkaline Phosphatase 79 40 - 150 U/L 02/10/2022 2:08 PM [facility] ALT 72(H) 5 - 55 U/L 02/10/2022 2:08 PM [facility] AST 125(H) 5 - 34 U/L 02/10/2022 2:08 PM [facility] Anion Gap 14 8 - 18 02/10/2022 2:08 PM [facility] BUN/Creatinine Ratio 12 7 - 23 02/10/2022 2:08 PM [facility] Osmolality Calculated 286 270 - 300 mOsm/kg 02/10/2022 2:08 PM [facility] Albumin/Globulin Ratio 1.0(L) 1.1 - 2.3 02/10/2022 2:08 PM [facility] eGFR by CKD-EPI 76(L) >=90 mL/min/1.7 3 m2 02/10/2022 2:08 PM [facility] Blood BLOOD SPECIMEN / Unknown Venipuncture / Unknown 02/10/2022 1:33 PM QUALITY REVIEWER 02/10/2022 1:39 PM QUALITY REVIEWER Thad Tejeda DO LAB - CHEMISTRY OR DERABLES [facility] [address] [place] [address], [facility] [phone] from Last 3 Months or Most Recently Relevant to Health Maintenance
[2024-05-08 17:08] VITALS: BP 185/84; PULSE 81; RESP 19; TEMP 37.2; O2SAT 96
--- OUTSIDE RECORDS SUMMARY | 2024-05-08 18:58 | XMS_ITS | Clinical Summary ---
Author Organization [facility] [employer] Address [address] [place] [address] Care Team Providers Care Spanish Interpreter/Translator Name Role Phone Unavailable Primary Care Provider Unavailabl e Source Comments [facility] [employer],non-owned Affiliates and Associated Physician Practices is amultiple site organization consisting of ambulatory clinics and hospital sitesin [place] and [place]. This disclosure is being madepursuant to the Care Everywhere program and may not contain all information available regarding this patient. Last updated 17.[facility] [employer] Allergies Active Allergy Reactions Criticality Noted Date [...] Comments Blood Pressure 131/56 02/10/2022 7:30 PM WAFER FAB OPERATOR Pulse 63 02/10/2022 7:30 PM WAFER FAB OPERATOR Temperature 36.2 C (97.1 F) 02/10/2022 12:11 PM WAFER FAB OPERATOR Respiratory Rate 12 02/10/2022 7:30 PM WAFER FAB OPERATOR Oxygen Saturation 95% 02/10/2022 7:30 PM WAFER FAB OPERATOR Inhaled Oxygen Concentration - - Weight 99.8 [...] COMPREHENSIVE METABOLIC PANEL STAT 02/10/2022 1:33 PM WAFER FAB OPERATOR from Last 3 Months or Most Recently Relevant to Health Maintenance Results * (ABNORMAL) COMPREHENSIVE METABOLIC PANEL (02/10/2022 1:33 PM WAFER FAB OPERATOR) BUN 10 7 - 26 mg/dL 02/10/2022 2:08 PM [facility] Creatinine 0.85 0.56 - 0.96 mg/dL 02/10/2022 2:08 PM [facility] Sodium 138 136 - 145 mmol/L 02/10/2022 2:08 PM [facility] Potassium 4.9(H) 3.5 - 4.5 mmol/L 02/10/2022 2:08 PM [facility] Chloride 104 98 - 107 mmol/L 02/10/2022 2:08 PM [facility] CO2 25 22 - 29 mmol/L 02/10/2022 2:08 PM [facility] Glucose 122(H) 70 - 115 mg/dL 02/10/2022 2:08 PM [facility] Calcium 8.8 8.4 - 10.2 mg/dL 02/10/2022 2:08 PM [facility] Protein Total 7.5 6.0 - 8.3 g/dL 02/10/2022 2:08 PM [facility] Albumin 3.7 3.4 - 5.0 g/dL 02/10/2022 2:08 PM [facility] Bilirubin Total 1.7(H) 0.2 - 1.2 mg/dL 02/10/2022 2:08 PM [facility] Alkaline Phosphatase 79 40 - 150 U/L 02/10/2022 2:08 PM [facility] ALT 72(H) 5 - 55 U/L 02/10/2022 2:08 PM [facility] AST 125(H) 5 - 34 U/L 02/10/2022 2:08 PM [facility] Anion Gap 14 8 - 18 02/10/2022 2:08 PM [facility] BUN/Creatinine Ratio 12 7 - 23 02/10/2022 2:08 PM [facility] Osmolality Calculated 286 270 - 300 mOsm/kg 02/10/2022 2:08 PM [facility] Albumin/Globulin Ratio 1.0(L) 1.1 - 2.3 02/10/2022 2:08 PM [facility] eGFR by CKD-EPI 76(L) >=90 mL/min/1.7 3 m2 02/10/2022 2:08 PM [facility] Blood BLOOD SPECIMEN / Unknown Venipuncture / Unknown 02/10/2022 1:33 PM WAFER FAB OPERATOR 02/10/2022 1:39 PM WAFER FAB OPERATOR Thad Tejeda DO LAB - CHEMISTRY OR DERABLES [facility] [address] [place] [address], [facility] [phone] from Last 3 Months or Most Recently Relevant to Health Maintenance
--- OUTSIDE RECORDS SUMMARY | 2024-05-08 18:58 | XMS_ITS | Patient Health Summary ---
Author Organization [facility] Address [address] [place] [address] Care Team Providers Care Middle School History Teacher Name Role Phone Unavailable Primary Care Provider Unavailabl e Note from [facility],non-owned Affiliates and Associated Physician Practices is amultiple site organization consisting of ambulatory clinics and hospital sitesin [place], [place], [place] and [place]. This disclosure is being madepursuant to the Care Everywhere program and may not contain all information available regarding this patient. Last updated 17.[facility] Allergies * Contrast-Gadolinium Agents For Mri(Anaphylaxis) -High [...] Comments Blood Pressure 131/56 02/10/2022 7:[address] SQL DEVELOPER Pulse 63 02/10/2022 7:[address] SQL DEVELOPER Temperature 36.2 C (97.1 F) 02/10/2022 12:[address] SQL DEVELOPER Respiratory Rate 12 02/10/2022 7:[address] SQL DEVELOPER Oxygen Saturation 95% 02/10/2022 7:[address] SQL DEVELOPER Inhaled Oxygen Concentration - - Weight 99.8 [...] SHOULDER RIGHT WO CONTRAST (02/10/2022 6:[address] SQL DEVELOPER) Anatomical Region Laterality Modality Upper Extremity Computed Tomogra phy 02/11/2022 11:[address] SQL DEVELOPER Impressions 02/11/2022 11:[address] SQL DEVELOPER IMPRESSION: 1.Comminuted moderately displaced fracture of the humeral head and neck. > Dictated by Yosi Vilchis DO (Education Program Associate) Ken Mora MD have personally reviewed and interpreted this examination/study. > Interpreting Provider: Ken Anderson MD on 02/11/2022 11:33 AM Narrative 02/11/2022 11:[address] SQL DEVELOPER PROCEDURE: CT SHOULDER RIGHT WO CONTRAST, DATE/TIME OF EXAM: 02/10/2022 6:39 PM, LOCATION [facility] INDICATION: S42.291A: Other closed displaced fracture of [...] CONTRAST, DATE/TIME OF EXAM:02/10/2022 6:39 PM, LOCATION [facility] INDICATION: S42.291A: Other closed displaced fracture of [...] neck. > Dictated by Yosi Vilchis DO (Education Program Associate) Ken Mora MD have personally reviewed and interpreted this examination/study. > Interpreting Provider: Ken Anderson MD on 02/11/2022 11:33 AM Thad Tejeda DO CT ORDERABLES * (ABNORMAL) CBC W AUTO DIFFERENTIAL (02/10/2022 1:33 PM [facility]) WBC 8.0 3.5 - 10.5 10 3/uL 02/10/2022 1:43 PM [facility] RBC 4.29 3.80 - 5.20 10 6/uL 02/10/2022 1:43 PM [facility] Hemoglobin 13.9 12.0 - 15.6 g/dL 02/10/2022 1:43 PM [facility] Hematocrit 40.9 35.0 - 45.0 % 02/10/2022 1:43 PM [facility] MCV 95.3 80.7 - 98.3 fL 02/10/2022 1:43 PM [facility] MCH 32.4 26.7 - 34.0 pg 02/10/2022 1:43 PM [facility] MCHC 34.0 30.8 - 35.9 g/dL 02/10/2022 1:43 PM [facility] RDW-SD 45.9 36.0 - 50.0 fL 02/10/2022 1:43 PM [facility] RDW-CV 13.1 11.2 - 14.8 % 02/10/2022 1:43 PM [facility] Platelet Count 165 150 - 400 10 3/uL 02/10/2022 1:43 PM [facility] MPV 10.3 9.4 - 12.9 fL 02/10/2022 1:43 PM [facility] nRBC Absolute 0.00 0 10 3/uL 02/10/2022 1:43 PM [facility] nRBC Auto 0.0 0 /100 WBC 02/10/2022 1:43 PM [facility] Neutrophils % 80.1(H) 35.0 - 70.0 % 02/10/2022 1:43 PM [facility] Lymphocytes % 11.2(L) 20.0 - 43.0 % 02/10/2022 1:43 PM [facility] Monocytes % 7.8 5.0 - 13.0 % 02/10/2022 1:43 PM [facility] Eosinophils % 0.1 0.0 - 6.0 % 02/10/2022 1:43 PM [facility] Basophil % 0.4 0.0 - 2.0 % 02/10/2022 1:43 PM [facility] Neutrophils Absolute 6.38 1.60 - 7.00 10 3/uL 02/10/2022 1:43 PM [facility] Lymphocyte Absolute 0.89(L) 1.10 - 3.90 10 3/uL 02/10/2022 1:43 PM [facility] Monocytes Absolute 0.62 0.26 - 1.07 10 3/uL 02/10/2022 1:43 PM [facility] Eosinophils Absolute 0.01 0.00 - 0.47 10 3/uL 02/10/2022 1:43 PM [facility] Basophils Absolute 0.03 0.00 - 0.08 10 3/uL 02/10/2022 1:43 PM [facility] Immature Granulocytes % 0.4 0.0 - 1.0 % 02/10/2022 1:43 PM [facility] Immature Granulocytes Absolute 0.03 02/10/2022 1:43 PM [facility] Blood BLOOD SPECIMEN / Unknown Venipuncture / Unknown 02/10/2022 1:[address] SQL DEVELOPER 02/10/2022 1:39 PM [facility] Thad Tejeda DO LAB - HEMATOLOGY O RDERABLES [facility] [address] [place] [address], [facility] [phone] * (ABNORMAL) COMPREHENSIVE METABOLIC PANEL (02/10/2022 1:[address] SQL DEVELOPER) BUN 10 7 - 26 mg/dL 02/10/2022 2:08 PM [facility] Creatinine 0.85 0.56 - 0.96 mg/dL 02/10/2022 2:08 PM [facility] Sodium 138 136 - 145 mmol/L 02/10/2022 2:08 PM [facility] Potassium 4.9(H) 3.5 - 4.5 mmol/L 02/10/2022 2:08 PM [facility] Chloride 104 98 - 107 mmol/L 02/10/2022 2:08 PM [facility] CO2 25 22 - 29 mmol/L 02/10/2022 2:08 PM [facility] Glucose 122(H) 70 - 115 mg/dL 02/10/2022 2:08 PM [facility] Calcium 8.8 8.4 - 10.2 mg/dL 02/10/2022 2:08 PM [facility] Protein Total 7.5 6.0 - 8.3 g/dL 02/10/2022 2:08 PM [facility] Albumin 3.7 3.4 - 5.0 g/dL 02/10/2022 2:08 PM [facility] Bilirubin Total 1.7(H) 0.2 - 1.2 mg/dL 02/10/2022 2:08 PM [facility] Alkaline Phosphatase 79 40 - 150 U/L 02/10/2022 2:08 PM [facility] ALT 72(H) 5 - 55 U/L 02/10/2022 2:08 PM [facility] AST 125(H) 5 - 34 U/L 02/10/2022 2:08 PM [facility] Anion Gap 14 8 - 18 02/10/2022 2:08 PM [facility] BUN/Creatinine Ratio 12 7 - 23 02/10/2022 2:08 PM [facility] Osmolality Calculated 286 270 - 300 mOsm/kg 02/10/2022 2:08 PM [facility] Albumin/Globulin Ratio 1.0(L) 1.1 - 2.3 02/10/2022 2:08 PM [facility] eGFR by CKD-EPI 76(L) >=90 mL/min/1.7 3 m2 02/10/2022 2:08 PM [facility] Blood BLOOD SPECIMEN / Unknown Venipuncture / Unknown 02/10/2022 1:[address] SQL DEVELOPER 02/10/2022 1:39 PM [facility] Thad Tejeda DO LAB - CHEMISTRY OR DERABLES [facility] [address] [place] [address], [facility] [phone] * XR ELBOW RIGHT 3VW OR MORE (02/10/2022 1:[address] SQL DEVELOPER) Anatomical Region Laterality Modality Upper Extremity Radiographic Michelle ging 02/10/2022 1:[address] SQL DEVELOPER Impressions 02/10/2022 1:[address] SQL DEVELOPER IMPRESSION: 1.Acute, oblique fracture through the surgical neck of the proximal humerus with medial displacement of the distal humeral fragment. 2.The distal humerus and elbow are intact without substantial soft tissue edema or effusion. Report dictated by Shan Saldana MD (residential appraiser). IANGELICA MD have personally reviewed and interpreted this examination/study. > Interpreting Provider: ANGELICA DICKSON MD on 02/10/2022 1:56 PM Narrative 02/10/2022 1:[address] SQL DEVELOPER PROCEDURE: XR SHOULDER RIGHT 2VW OR MORE, XR ELBOW RIGHT 3VW OR MORE, XR HUMERUS RIGHT 2VW OR MORE, DATE/TIME OF EXAM: 02/10/2022 1:14 PM, LOCATION [facility] INDICATION: S42.291A: Other closed displaced fracture of proximal end of right humerus, initial encounter ADDITIONAL CLINICAL INFORMATION: Ordering Provider Reason For Exam: Fracture. (accession [id number]), Fracture (accession [id number]), Fracture (accession [id number]) Technologist Note: Additional: COMPARISON: None. FINDINGS: Right [...] MORE, DATE/TIME OF EXAM: 02/10/2022 1:14 PM,LOCATION [facility] INDICATION: S42.291A: Other closed displaced fracture of proximal end of righthumerus, initial encounter ADDITIONAL CLINICAL INFORMATION: Ordering Provider Reason For Exam: Fracture. (accession [id number]), Fracture (accession [id number]), Fracture (accession [id number]) Technologist Note: Additional: COMPARISON: None. FINDINGS: Right [...] effusion. Report dictated by Shan Saldana MD (residential appraiser). I, ANGELICA DICKSON MD have personally reviewed and interpreted this examination/study. > Interpreting Provider: ANGELICA DICKSON MD on 02/10/2022 1:56 PM Thad Tejeda DO DIAGNOSTIC IMAGING ORDERABLES * XR HUMERUS RIGHT 2VW OR MORE (02/10/2022 1:[address] SQL DEVELOPER) Anatomical Region Laterality Modality Upper Extremity Radiographic Michelle ging 02/10/2022 1:[address] SQL DEVELOPER Impressions 02/10/2022 1:[address] SQL DEVELOPER IMPRESSION: 1.Acute, oblique fracture through the surgical neck of the proximal humerus with medial displacement of the distal humeral fragment. 2.The distal humerus and elbow are intact without substantial soft tissue edema or effusion. Report dictated by Shan Saldana MD (residential appraiser). I, ANGELICA DICKSON MD have personally reviewed and interpreted this examination/study. > Interpreting Provider: ANGELICA DICKSON MD on 02/10/2022 1:56 PM Narrative 02/10/2022 1:[address] SQL DEVELOPER PROCEDURE: XR SHOULDER RIGHT 2VW OR MORE, XR ELBOW RIGHT 3VW OR MORE, XR HUMERUS RIGHT 2VW OR MORE, DATE/TIME OF EXAM: 02/10/2022 1:14 PM, LOCATION [facility] INDICATION: S42.291A: Other closed displaced fracture of proximal end of right humerus, initial encounter ADDITIONAL CLINICAL INFORMATION: Ordering Provider Reason For Exam: Fracture. (accession [id number]), Fracture (accession [id number]), Fracture (accession [id number]) Technologist Note: Additional: COMPARISON: None. FINDINGS: Right [...] MORE, DATE/TIME OF EXAM: 02/10/2022 1:14 PM,LOCATION [facility] INDICATION: S42.291A: Other closed displaced fracture of proximal end of righthumerus, initial encounter ADDITIONAL CLINICAL INFORMATION: Ordering Provider Reason For Exam: Fracture. (accession [id number]), Fracture (accession [id number]), Fracture (accession [id number]) Technologist Note: Additional: COMPARISON: None. FINDINGS: Right [...]
--- OUTSIDE RECORDS SUMMARY | 2024-05-08 18:58 | XMS_ITS | Referral Summary ---
Author Organization [facility] [employer] Address [address] [place] [address] Care Team Providers Care Metal Miner Blasting Name Role Phone Unavailable Primary Care Provider Unavailabl e Source Comments [facility] [employer] [facility] [facility],non-owned Affiliates and Associated Physician Practices is amultiple site organization consisting of ambulatory clinics and hospital sitesin [place], [place], [place] and [place]. This disclosure is being madepursuant to the Care Everywhere program and may not contain all information available regarding this patient. Last updated 17.[facility] [facility] Allergies Active Allergy Reactions Criticality Noted Date [...] Comments Blood Pressure 131/56 02/10/2022 7:30 PM CRISIS CLINICIAN Pulse 63 02/10/2022 7:30 PM CRISIS CLINICIAN Temperature 36.2 C (97.1 F) 02/10/2022 12:11 PM CRISIS CLINICIAN Respiratory Rate 12 02/10/2022 7:30 PM CRISIS CLINICIAN Oxygen Saturation 95% 02/10/2022 7:30 PM CRISIS CLINICIAN Inhaled Oxygen Concentration - - Weight 99.8 kg (220 lb) 07/16/2022 11:20 AM CDT Height 167.6 cm (5' 6 ) 07/16/2022 11:20 AM CDT Body Mass Index 35.51 07/16/2022 11:20 AM CDT Plan of Treatment Not on file Procedures Procedure Name Priority Date/Time Associated Diagnosis Comments COMPREHENSIVE METABOLIC PANEL STAT 02/10/2022 1:33 PM CRISIS CLINICIAN from Last 3 Months or Most Recently Relevant to Health Maintenance Results * (ABNORMAL) COMPREHENSIVE METABOLIC PANEL (02/10/2022 1:33 PM CRISIS CLINICIAN) BUN 10 7 - 26 mg/dL 02/10/2022 2:08 PM [facility] Creatinine 0.85 0.56 - 0.96 mg/dL 02/10/2022 2:08 PM [facility] Sodium 138 136 - 145 mmol/L 02/10/2022 2:08 PM [facility] Potassium 4.9(H) 3.5 - 4.5 mmol/L 02/10/2022 2:08 PM [facility] Chloride 104 98 - 107 mmol/L 02/10/2022 2:08 PM [facility] CO2 25 22 - 29 mmol/L 02/10/2022 2:08 PM [facility] Glucose 122(H) 70 - 115 mg/dL 02/10/2022 2:08 PM [facility] Calcium 8.8 8.4 - 10.2 mg/dL 02/10/2022 2:08 PM [facility] Protein Total 7.5 6.0 - 8.3 g/dL 02/10/2022 2:08 PM [facility] Albumin 3.7 3.4 - 5.0 g/dL 02/10/2022 2:08 PM [facility] Bilirubin Total 1.7(H) 0.2 - 1.2 mg/dL 02/10/2022 2:08 PM [facility] Alkaline Phosphatase 79 40 - 150 U/L 02/10/2022 2:08 PM [facility] ALT 72(H) 5 - 55 U/L 02/10/2022 2:08 PM [facility] AST 125(H) 5 - 34 U/L 02/10/2022 2:08 PM [facility] Anion Gap 14 8 - 18 02/10/2022 2:08 PM [facility] BUN/Creatinine Ratio 12 7 - 23 02/10/2022 2:08 PM [facility] Osmolality Calculated 286 270 - 300 mOsm/kg 02/10/2022 2:08 PM [facility] Albumin/Globulin Ratio 1.0(L) 1.1 - 2.3 02/10/2022 2:08 PM [facility] eGFR by CKD-EPI 76(L) >=90 mL/min/1.7 3 m2 02/10/2022 2:08 PM [facility] Blood BLOOD SPECIMEN / Unknown Venipuncture / Unknown 02/10/2022 1:33 PM CRISIS CLINICIAN 02/10/2022 1:39 PM CRISIS CLINICIAN Thad Tejeda DO LAB - CHEMISTRY OR DERABLES [facility] [address] [place] [address], [facility] [phone] from Last 3 Months or Most Recently Relevant to Health Maintenance
--- NOTE | 2024-05-08 19:43 | ED.ABDPAIN ---
HPI - Abdominal Pain General Chief Complaint: Abdominal Pain Stated Complaint: LEFT LOWER ABD PAIN, FEVER Time Seen by Provider: 05/08/24 18:23 Source: patient Mode of arrival: ambulatory Limitations: no limitations History of Present Illness HPI narrative: This is a 68-year-old female that presents to the emergency department for left lower quadrant abdominal pain. Ongoing since this morning. Reports associated diarrhea. Reports history of diverticulitis. Also reports fevers. Related Data Allergies Allergy/AdvReac Type Severity Reaction Status Date / Time Contrast Media Allergy Unknown Swelling Uncoded 05/08/24 19:57 Review of Systems Review of Systems: CONSTITUTIONAL: Denies fever GASTROINTESTINAL: Reports abdominal pain, and diarrhea. All systems reviewed & are unremarkable except as noted in HPI and below PMFSH Past Medical History Medical History Arthritis of knee Fracture of head of right humerus HLD (hyperlipidemia) HTN (hypertension) Impacted cerumen of both ears Surgical History Surgical History History of cholecystectomy Family History Family History Father Hypertension Malignant neoplasm of prostate Mother Hypertension Sibling Family history of malignant neoplasm of urinary bladder Hypertension Social History Social History Smoking status: Never smoker Second hand tobacco smoke exposure: No Alcohol intake: current Drinks per week: 6 Substance use: never Substance use type: does not use Lack of Transportation: No Lack of Food: Never True Current Housing: I Have Housing Concerned About Future Housing: No Difficulty Paying Gas/Electric Bills: No Difficulty Paying for Meds: No Currently Unemployed: No Education: High School Diploma/GED Difficulty w/ Childcare or Family Care: No Living arrangements: with family Occupation/Education: other Additional occupation/education comments: HM Gender identity (if verbalized by the patient): Female Sexual Orientation (if Verbalized by the Patient): Straight or Heterosexual Exam Narrative: GENERAL: Well-appearing, well-nourished, and in no acute distress. HEAD: Normocephalic, atraumatic. EYES: EOMI. CHEST: Clear to auscultation. No respiratory distress. No wheezes rales or rhonchi HEART: Regular rate and rhythm. No murmur heard. Normal peripheral pulses. ABDOMEN: Soft, nondistended, normal active bowel sounds. Mild tenderness to palpation in left lower abdomen, without guarding EXTREMITIES: Normal range of motion. No edema. SKIN: Warm, dry, no rash. NEURO: No focal deficits. Alert and oriented x3. PSYCH: Normal mood and affect Course Course Emergency Course: Patient updated on her workup and agrees with plan of care Vital Signs Vital signs: Vital Signs Temperature 98.9 F 05/08/24 17:08 Pulse Rate 81 05/08/24 17:08 Respiratory Rate 19 05/08/24 17:08 Blood Pressure 185/84 H 05/08/24 17:08 Pulse Oximetry 96 05/08/24 17:08 Oxygen Delivery Room Air 05/08/24 17:08 Temperature 98.9 F 05/08/24 17:08 Pulse Rate 81 05/08/24 17:08 Respiratory Rate 19 05/08/24 17:08 Blood Pressure 185/84 H 05/08/24 17:08 Pulse Oximetry 96 05/08/24 17:08 Oxygen Delivery Room Air 05/08/24 17:08 MDM - Abdominal Pain MDM Narrative Medical decision making narrative: Patient presents emergency department for left lower quadrant abdominal pain. History of diverticulitis. Patient is afebrile and nontoxic appearing. CBC with mild leukocytosis to 11.6. Metabolic panel without concerning findings. CT abdomen and pelvis shows uncomplicated proximal sigmoid diverticulitis. 3.1 cm simple left ovarian cyst. Patient updated on her workup and agrees with plan of care. She is to follow up with primary provider. She was given warnings to return to the ER Differential Diagnosis Differential diagnosis: Likely calculus of kidney and diverticulitis Lab Data Attestation: I reviewed the patient's lab results. 05/08/24 19:56 05/08/24 19:56 Labs: Lab Results 05/08/24 Range/Units 19:56 WBC 11.6 H (4.5-10.0) K/mm3 RBC 4.92 (4.2-5.4) M/mm3 Hgb 15.9 H (12.0-15.0) g/dL Hct 45.9 (37.0-47.0) % MCV 93.3 (80-100) fl MCH 32.3 (26-34) pg MCHC 34.6 (32-36) g/dl RDW 12.9 (11.5-14.5) % Plt Count 201 (150-375) k/mm3 MPV 9.7 (7.4-10.4) fl Immature Gran % (Auto) 0.3 (0-0.5) % Neut % (Auto) 77.7 H (45.5-73.1) % Lymph % (Auto) 12.7 L (18.3-44.2) % Buchanan % (Auto) 8.6 H (2.6-8.5) % Eos % (Auto) 0.3 (0-4.4) % Baso % (Auto) 0.4 (0.2-1.2) % Lymph # (Auto) 1.47 (0.9-3.2) K/mm3 Buchanan # (Auto) 1.0 H (0.1-0.6) K/mm3 Eos # (Auto) 0.0 (0-0.3) K/mm3 Baso # (Auto) 0.1 (0.0-0.1) K/mm3 Abs Immat Gran (auto) 0.04 H (0.00-0.031) K/mm3 Absolute Neuts (auto) 9.0 H (1.3-6.7) K/mm3 Absolute Nucleated RBC 0.000 (0.0-0.012) K/mm3 Nucleated RBC % 0.0 (0.0-0.2) % Sodium 135 L (137-145) mmol/L Potassium 4.4 (3.4-5.0) mmol/L Chloride 101 (98-107) mmol/L Carbon Dioxide 24 (22-30) mmol/L Anion Gap 10 (4-12) mmol/L BUN 8 (7-17) mg/dL Creatinine 0.60 L (0.7-1.0) mg/dL Estim Creat Clear Calc 94 ml/min Estimated GFR > 60 (59 - ) Glucose 112 H (65-110) mg/dL Calcium 9.3 (8.4-10.2) mg/dL Total Bilirubin 1.0 (0.2-1.3) mg/dL AST 31 (14-36) U/L ALT 23 (6-35) U/L Alkaline Phosphatase 79 (38-126) U/L Total Protein 9.0 H (6.3-8.2) g/dL Albumin 4.5 (3.5-5.1) g/dL Lipase 48 (23-300) U/L Imaging Data Radiologist's impression: ITS Impressions Abdomen/Pelvis CT 05/08/24 20:53 IMPRESSION: Cirrhosis. Slight interval enlargement of the pancreatic head cyst now measuring 4.7 cm, with minimal regional climate change analyst nearly 6 years. Likely pseudocyst or benign epithelial cyst. Uncomplicated proximal sigmoid diverticulitis. 3.1 cm simple appearing left adnexal cyst, consider nonemergent outpatient pelvic ultrasound for further evaluation. Critical Care Time Critical Care Time Critical Care Time: No Discharge Plan Discharge Clinical Impression: Diverticulitis Cyst, ovarian Qualifiers: Laterality: left Qualified Code(s): N83.202 - Unspecified ovarian cyst, left side Patient Disposition: Home, Self-Care Condition: Stable Instructions: Antibiotic Form, Ovarian Cyst (ED), Diverticulitis (ED), Diverticulitis Diet (ED) Additional Instructions: Return to the ER if you experience fever, abdominal pain with nausea and vomiting, you are unable to keep down liquids or solids, blood in the stool, or any other symptoms that are concerning to you Remain well hydrated. Take oral antibiotics as prescribed. Liquid diet for the next day or two until your pain is improving, then increase your diet as tolerated Follow up with primary care doctor and erecting engineer Patient Language: Malay Prescriptions: New amoxicillin-pot clavulanate 875-125 mg tablet 1 tablet PO Q12H 10 Days Qty: 20 0RF No Action omeprazole 20 mg capsule,delayed release(DR/EC) 20 mg PO DAILY Qty: 90 2RF Rx Instructions: take 1 capsule by oral route every day 30 minutes to 1 hour before a meal atenolol 50 mg tablet See Rx Instructions .ROUTE .COMPLEX Qty: 90 1RF Dose Instruction: Take 1 tablet by mouth once daily Rx Instructions: Take 1 tablet by mouth once daily diltiazem HCl 360 mg capsule,extended release 24 hr 360 mg PO DAILY Qty: 90 3RF Rx Instructions: TAKE 1 CAPSULE BY MOUTH ONCE DAILY Follow-up/Referrals: Terese Palomares MD [Primary Care Provider] -
[2024-05-08 20:06] LABS: Basophils Absolute Auto 0.1 K/mm3 (0.0-0.1); Basophils Percent Auto 0.4 % (0.2-1.2); Eosinophils Percent Auto 0.3 % (0-4.4); Hematocrit 45.9 % (37.0-47.0); Hemoglobin 15.9 g/dL (12.0-15.0); Immature Granulocyte Absolute 0.04 K/mm3 (0.00-0.031); Immature Granulocyte Percent A 0.3 % (0-0.5); Lymphocytes Absolute Auto 1.47 K/mm3 (0.9-3.2); Lymphocytes Percent Auto 12.7 % (18.3-44.2); Mean Corpuscular HGB Conc 34.6 g/dl (32-36); Mean Corpuscular Hemoglobin 32.3 pg (26-34); Mean Corpuscular Volume 93.3 fl (80-100); Mean Platelet Volume 9.7 fl (7.4-10.4); Monocytes Percent Auto 8.6 % (2.6-8.5); Neutrophils Percent Auto 77.7 % (45.5-73.1); Platelet Count Result 201 k/mm3 (150-375); Red Blood Count 4.92 M/mm3 (4.2-5.4); Red Cell Distribution Width 12.9 % (11.5-14.5); White Blood Count 11.6 K/mm3 (4.5-10.0)
[2024-05-08 20:15] LABS: Alanine Aminotransferase 23 U/L (6-35); Albumin Level 4.5 g/dL (3.5-5.1); Alkaline Phosphatase 79 U/L (38-126); Anion Gap 10 mmol/L (4-12); Aspartate Amino Transferase 31 U/L (14-36); Blood Urea Nitrogen 8 mg/dL (7-17); Calcium 9.3 mg/dL (8.4-10.2); Carbon Dioxide 24 mmol/L (22-30); Chloride 101 mmol/L (98-107); Estimated CRCL calculation 94 ml/min; Estimated Glomerular Filt Rate > 60; Glucose 112 mg/dL (65-110); Lipase 48 U/L (23-300); Potassium 4.4 mmol/L (3.4-5.0); Sodium 135 mmol/L (137-145)
[2024-05-08 21:37] VITALS: BP 145/75; PULSE 71; RESP 17; O2SAT 95
== END 2024-05-08 21:50 | disposition home or self-care (01) ==
PROVIDERS: Emergency Provider Physician Assistant; PCP Family Medicine
DX: K57.30 Diverticulosis of large intestine without perforation or abscess without bleeding (principal); N83.202 Unspecified ovarian cyst, left side; I10 Essential (primary) hypertension; E78.5 Hyperlipidemia, unspecified; M17.9 Osteoarthritis of knee, unspecified; Z90.49 Acquired absence of other specified parts of digestive tract; K74.60 Unspecified cirrhosis of liver; K86.2 Cyst of pancreas
CPT/HCPCS: 36415; 74176; 80053; 83690; 85025; 99284

== ENCOUNTER 2024-10-14 11:21 | Outpatient (CLI) | payer OTHER, SELFPAY ==
--- NOTE | ~2024-10-14 | US_ITS ---
EXAMINATION: US pelvic complete w TV INDICATION: Left ovarian cyst Comparison:CT dated 05/08/2024 TECHNIQUE: Multiple transabdominal and endovaginal sonographic images of the pelvis performed. FINDINGS: The uterus measures 7.1 x 3.2 x 4.4 cm. The endometrial complex measures 4 mm. There is a left adnexal cyst measuring 2.8 cm, likely ovarian. There is no free fluid in the pelvis. There are no abnormal masses seen on either side. IMPRESSION: 1. Left adnexal cyst measuring 2.8 cm, likely ovarian. Reviewed, dictated and finalized at location O.
== END 2024-10-14 11:22 | disposition home or self-care (01) ==
PROVIDERS: PCP Family Medicine; Visit Provider Nurse Practitioner Obstetrics & Gynecology
DX: N83.202 Unspecified ovarian cyst, left side (principal)
CPT/HCPCS: 76830; 76856